=== PATIENT | female | born 1990 | race Caucasian/White ===

== ENCOUNTER 2019-12-08 07:03 | Day surgery (SDC) | payer MEDICAID ==
[~2019-12-08] VITALS: Ht 160 cm; Wt 59.0 kg
--- NOTE | ~2019-12-08 | OP ---
PATIENT NAME: CHER RICH MEDICAL RECORD: [id number] :90 LOCATION:[facility] ADMISSION DATE: SURGEON: MARLENE COCHRAN MD DATE OF OPERATION: 12/08/2019 PREOPERATIVE DIAGNOSES: End-stage renal disease and dependence on hemodialysis, steal syndrome associated with right arm arteriovenous fistula and mechanical complication of vascular dialysis catheter. POSTOPERATIVE DIAGNOSES: End-stage renal disease and dependence on hemodialysis, steal syndrome associated with right arm arteriovenous fistula and mechanical complication of vascular dialysis catheter. OPERATION PERFORMED: Revision of AV fistula, right arm with ligation of venous outflow to the basilic vein and evaluation of Mahurkar tunneled dialysis catheter in the left internal jugular vein with fluoroscopy and contrast injection to verify position. SURGEON: Marlene Cochran MD ANESTHESIA: General per HEAD DOFFER. PREOPERATIVE NOTE: Ms. Rich is a 29-year-old white female patient referred to me by Dr. Schulz. She has end-stage renal disease due to complications of a spina bifida and is presently dialyzing with a catheter. I changed her tunneled dialysis catheter back on 11/27/2019, at [facility] placing a 19-cm Mahurkar non-split tunneled catheter via the left internal jugular vein. I am told that catheter is not functioning well and I have been asked to evaluate it. That same day, I performed an angiogram due to the patient's steal symptoms and demonstrated the patient has a large brachiocephalic AV fistula with a very large runoff to the basilic vein as well. Flow reduction to reduce steal symptoms can be accomplished, we believe with eradication of the venous outflow to the basilic side. Under general anesthesia, the patient was placed in supine position, prepped and draped in sterile manner. A transverse incision was made over the AV fistula anastomosis and the basilic vein outflow tract was dissected from the surrounding tissues and doubly ligated with 0 silk. I demonstrated with Duplex color flow ultrasound persistence of flow and a nicely developing cephalic vein fistula and elimination of the arterial flow in the basilic vein. The wound was closed with running intracuticular 4-0 Stratafix and Dermabond glue. It was dressed with Maxorb Ag, Tegaderm, and Cavilon skin prep. The patient was then reprepped and redraped for what was planned as replacement or exchange of her HemoSplit or tunneled dialysis catheter. I first noted on fluoroscopy that the catheter appeared to be in excellent anatomic position in the mid right atrium. There were no kinks or other apparent complications of the insertion of the catheter from the left side visibly fluoroscopically. I accessed both venous and arterial lumens and aspirated the contents and discarded the initial syringe to eliminate the heparin locking. The ports were then again aspirated and flushed vigorously repeatedly and there was just no problem. I then injected contrast via the venous limb of the catheter and noted a proper filling of the right atrium without any evidence of any obstruction and no evidence of any fibrin sheath. In my opinion, the catheter does not need to OPERATIVE REPORT [id number] CHER RICH be exchanged and that it was simply heparin locked again and clamped and capped and the standard sterile CVL dressing applied. The patient was then awakened and in stable condition taken back to the recovery room. Blood loss during the operation was on the order of 1 cc with the exception of 20 cc that was discarded during the tunneled dialysis catheter evaluation. Sponges, instruments, and needles were accounted for. No drain was used and no surgical specimen submitted for histopathology. PLAN: My plan is to have the patient back to see me in my office in about 2 weeks, probably the dialysis unit should start accessing her right arm fistula soon after that. TRANSINT:[id number] Voice Confirmation ID: [id number] DOCUMENT ID: [id number] cc: MARLENE Woo MD CC: MICHELLE SCHULZ [id number] DICTATION DATE: 12/08/19 1255 DIRECTOR OF RESERVATIONS: 12/08/19 2213 [facility] 12/08/19 [id number] [place] [address]
[2019-12-08 07:27] LABS: BASOPHILS 0.2 % (0-2); EOSINOPHILS 3.1 % (0-7); HEMATOCRIT 39.8 % (36.0-48.0); HEMOGLOBIN 12.7 g/dL (12-16); IMMATURE GRANULOCYTES 0.2 % (0-5); LYMPHOCYTES 12.4 % (15-50); MCH 30.7 pg (26.0-34.0); MCHC 31.9 g/dL (31.0-37.0); MCV 96.1 fL (80.0-100.0); MEAN PLATELET VOLUME 9.5 fL (7.4-10.4); MONOCYTES 9.5 % (2-11); NEUTROPHILS 74.6 % (40-80); PLATELET COUNT 195 10x3/uL (130-400); RBC 4.14 10x6/uL (4.00-5.40); RDW 15.5 % (11.5-14.5); WBC 8.6 10x3/uL (4.8-10.8)
[2019-12-08 07:30] LABS: INR 1.26 (0.85-1.17); PROTIME 15.3 SECONDS (11.6-15.0)
[2019-12-08 07:31] LABS: ANION GAP 13.5 mmol/L (8-16); CARBON DIOXIDE 28.5 mmol/L (21.0-32.0); CREATININE - SERUM 4.2 mg/dL (0.6-1.3)
[2019-12-08] MEDS ORDERED: KEPPRA1000 MG PO (08:03)
[2019-12-08] MEDS ORDERED: LANOXIN125 MCG PO (08:03)
[2019-12-08] MEDS ORDERED: ATIVAN1 MG PO (08:04)
[2019-12-08] MEDS ORDERED: ALBUTEROL SULF8.5 GM INH (08:04)
[2019-12-08] MEDS ORDERED: ZOFRAN4 MG PO (08:04)
[2019-12-08] MEDS ORDERED: PEPCID AC20 MG PO (08:05)
[2019-12-08] MEDS ORDERED: NEURONTIN600 MG PO (08:05)
[2019-12-08 08:06] VITALS: BP 134/79; Ht 160 cm; Wt 59.0 kg
[2019-12-08] MEDS ORDERED: ULTRAM50 MG PO (12:11)
--- NOTE | 2019-12-08 15:15 | NUR ---
1440 PT STATES BECAME NAUSEATED WHEN DRESSING AND REQUESTED SOMETHING FOR THE RIDE BACK HOME. PHENERGAN 12.5MG IM GIVEN FOR NAUSEA 1505 NO EMESIS, STATES NAUSEA IS BETTER. DENIES NAUSEA ANY LONGER. STATES READY FOR RELEASE. DC INSTS REVIEWED. RX GIVEN. RELEASED IN , [facility].
== END 2019-12-08 15:05 | disposition home or self-care (01) ==
LOC: D.OPS 07:03
PROVIDERS: ATTEND Internal Medicine Nephrology
DX: N18.6 End stage renal disease (principal); Z99.2 Dependence on renal dialysis; T82.898A Other specified complication of vascular prosthetic devices, implants and grafts, initial encounter; T82.49XA Other complication of vascular dialysis catheter, initial encounter; Q05.9 Spina bifida, unspecified; I10 Essential (primary) hypertension

== ENCOUNTER → 2020-01-25 10:55 | Outpatient (CLI) | payer MEDICAID ==
[2020-01-05 06:39] VITALS: BMI 23.0
== END | disposition home or self-care (01) ==
LOC: D.LABREF 10:55
PROVIDERS: ATTEND Surgery
DX: Z49.01 Encounter for fitting and adjustment of extracorporeal dialysis catheter (principal); N18.6 End stage renal disease; Z99.2 Dependence on renal dialysis; N31.9 Neuromuscular dysfunction of bladder, unspecified

== ENCOUNTER 2020-01-29 06:05 | Day surgery (SDC) | payer MEDICAID ==
[~2020-01-29] VITALS: Ht 160 cm; Wt 59.1 kg
[~2020-01-29 06:05] MED LIST: ALBUTEROL SULF8.5 GM INH; ATIVAN1 MG PO; DILTIAZEM 24HR240 M4 PO; KEPPRA1000 MG PO; LANOXIN125 MCG PO; NEURONTIN600 MG PO; PEPCID AC20 MG PO; TOPROL XL100 MG PO; ULTRAM50 MG PO; ZOFRAN4 MG PO
[2020-01-29 06:58] LABS: ANION GAP 13.7 mmol/L (8-16); CALCIUM 9.2 mg/dL (8.5-10.1); CARBON DIOXIDE 26.3 mmol/L (21.0-32.0); CREATININE - SERUM 4.4 mg/dL (0.6-1.3)
[2020-01-29 07:01] LABS: INR 1.36 (0.85-1.17); PROTIME 16.7 SECONDS (11.6-15.0)
[2020-01-29 07:02] LABS: BASOPHILS 0.3 % (0-2); EOSINOPHILS 8.7 % (0-7); HEMATOCRIT 31.3 % (36.0-48.0); IMMATURE GRANULOCYTES 0.3 % (0-5); LYMPHOCYTES 26.9 % (15-50); MCH 30.7 pg (26.0-34.0); MCHC 31.9 g/dL (31.0-37.0); MEAN PLATELET VOLUME 10.3 fL (7.4-10.4); MONOCYTES 6.4 % (2-11); NEUTROPHILS 57.4 % (40-80); PLATELET COUNT 249 10x3/uL (130-400); RBC 3.26 10x6/uL (4.00-5.40); RDW 12.4 % (11.5-14.5)
[2020-01-29 08:31] VITALS: BP 139/87; BMI 23.0
[2020-01-29 13:22] LABS: INR 1.75 (0.85-1.17); PROTIME 20.3 SECONDS (11.6-15.0)
[2020-01-29 13:24] LABS: D-DIMER-QUANTITATIVE 1.23 ug/mLFEU (0.20-0.54)
--- NOTE | 2020-01-29 16:20 | NUR ---
PT ARRIVES TO ROOM VIA WHEELCHAIR AAO X 4. HEMESPLIT TO RIGHT CHEST IN PLACE WITH MODERATE AMOUNT OF DRAINAGE NOTED 2X2 GUAZE PLACED. RUE FISTULA PRESENT BRUIT/THRILL PRESENT. BRUISING NOTED TO RUE. DRESSING NOTED TO LEFT CHEST FROM HEMESPLIT THAT WAS REMOVED PER PT. HEMESPLIT NOTED TO LEFT GROIN/THIGH AREA. BRUISING NOTED TO LEFT GROIN. RESPIRATIONS ARE EVEN AND UNLABORED. PT DENIES PRESENCE OF PAIN/N/V AT THIS TIME. PT DENIES PRESENCE OF DIZZINESS/DYSPNEA. FAMILY IS AT BEDSIDE. ASSESS[facility] F[facility] TO ASSUME CARE OF PT. BED IS IN THE LOWEST POSITION. CALL LIGHT AND BEDSIDE TABLE ARE WITHIN REACH. SIDE RAILS X 2.
[2020-01-29 16:25] VITALS: BP 131/94; Ht 160 cm; Wt 59.1 kg
--- NOTE | 2020-01-29 19:55 | NUR ---
PATIENT RETURNED FROM DIALYSIS. DIALYSIS NURSE STATED "THAT PATIENT RIGHT CHEST HEMOSPLIT WAS BLEEDING AT THAT THEY USED A SALINE BAG FOR PRESSURE" NO BLEEDIN AT THIS TIME. PATIENT IS ALERT AND ORIENTED, RESTING IN BED. RESPIRATIONS ARE EVEN AND UNLABORED. NO S/S OF DISTRESS. NO C/O PAIN. CALL LIGHT WITHIN REACH.
[2020-01-29] MEDS ORDERED: ELIQUIS5 MG PO (21:09)
[2020-01-30] VITALS: BP 120/74
[2020-01-30 04:00] VITALS: BP 107/69
[2020-01-30] MEDS ORDERED: ELIQUIS5 MG PO (04:16)
--- NOTE | 2020-01-30 07:26 | NUR ---
PT AWAKE AND ORIENTED, NO BLEEDING AT EITHER HEMASPLIT SITE. ASKING TO GO AHEAD AND GO HOME THIS MORNING, NO D/C ORDER AT THIS WILL CALL. CL IN REACH, SRX,2 AT BEDSIDE.
--- NOTE | 2020-01-30 09:36 | NUR ---
PT ESCORTED OUT VIA WHEELCHIAR TO HUSBANDS POV.
[2020-01-31 12:31] LABS: PROTEIN S - FREE 61 % (57-157); PROTEIN S - FUNCTIONAL 97 % (63-140); PROTEIN S - TOTAL 77 % (60-150)
[2020-01-31 18:30] LABS: MITOCHONDRIAL ANTIBODY <20.0 Units (0.0-20.0)
[2020-02-01 15:10] LABS: ACLA - IGG AB <9 GPL U/mL (0-14); ACLA - IGM AB <9 MPL U/mL (0-12); ANA REFLEX - ANTICHROMATIN ABS 0.6 AI (0.0-0.9); ANA REFLEX - CENTROMERE B ABS <0.2 AI (0.0-0.9); ANA REFLEX - DBL STRANDED DNA 10 IU/mL (0-9); ANA REFLEX - DIRECT Positive (Negative); ANA REFLEX - JO-1 AB <0.2 AI (0.0-0.9); ANA REFLEX - RNP ANTIBODIES 0.2 AI (0.0-0.9); ANA REFLEX - SCL-70 <0.2 AI (0.0-0.9); ANA REFLEX - SJOGRENS AB SSA <0.2 AI (0.0-0.9); ANA REFLEX - SJOGRENS AB SSB <0.2 AI (0.0-0.9); ANA REFLEX - SMITH AB <0.2 AI (0.0-0.9)
--- NOTE | 2020-02-01 16:25 | OP ---
PATIENT NAME: CHER RICH MEDICAL RECORD: [id number] :90 LOCATION:[facility] ADMISSION DATE: SURGEON: MARLENE COCHRAN MD DATE OF OPERATION: 01/29/2020 REFERRED BY: Angel Schulz MD PREOPERATIVE DIAGNOSES: End-stage renal disease and dialysis access catheter thrombosis. ADDITIONAL DIAGNOSES: Acquired thrombophilia, mechanical complication of arteriovenous fistula surgically created, dependence on renal dialysis and end-stage renal disease. OPERATION PERFORMED: Exchange of right internal jugular tunneled dialysis catheters and performance of an inferior vena cavogram. SURGEON: Marlene Cochran MD ANESTHESIA: General with LMA per TRANSFORMATION ARCHITECT. PREOPERATIVE NOTE: Ms. Rich is a 29-year-old white female patient with end-stage renal disease, who has a right brachiocephalic arterial venous fistula, which has been repeatedly infiltrated or extravasated recently and she has had to be dependent on catheter dialysis, but multiple catheters have failed and she seems to be clotting these catheters with having some type of acquired thrombophilia not yet characterized. At any rate, it is becoming quite a difficult and frustrating situation for this young lady. She is brought to the operating room as an outpatient today with plans to remove the right internal jugular catheter over a wire and place a new Merit center flow chronic tunneled dialysis catheter. Hopefully, the different engineering will help prevent approximation to the wall and obstruction of the lumens and also postoperative anticoagulation will help to prevent the catheter from clotting. Under general anesthesia, the patient was prepped and draped in sterile manner. The previous catheter was removed over a guidewire under fluoroscopy. A dilator peel-away sheath was inserted over the wire through the subcutaneous tunnel up to the point at which the wire turned downward in the internal jugular vein. Then, over the wire, I was able to pass the new Merit 23 cm long center flow catheter and the peel-away introducer was removed. The catheter was placed well into the retrohepatic inferior vena cava and contrast injected to perform an inferior vena cavogram. This demonstrated no thrombus and normal anatomy. There was no fibrin sheath or residual of any fibrin sheath apparent. The catheter was then heparin locked with 1000 units per cc heparin solution and the patient was given 5000 units of heparin systemically. The catheter was sutured to the skin near the entry site with 2-0 Prolene and additional sterile dressings applied including a chlorhexidine Biopatch. The patient will need to have dialysis today here in [place]. She will have to be here in the hospital, which will require her being admitted to observation or even inpatient status and hopefully this can be arranged. She [facility]. Dr. Schulz and APs are working on trying to find a way for her to have dialysis here in [place] today. OPERATIVE REPORT [id number] CHER RICH I plan for her to continue Eliquis as her long-term anticoagulant. She started just a couple of days ago on Eliquis 2.5 mg daily. I am going to increase her dose to 5 mg twice a day. I think we should probably wait about 2 weeks and allow her fistula to rest and heal and hopefully mature further and then start trying it again with a single needle. Perhaps the use of a longer needle also would prevent the needles migrating through a back wall of the fistula during the dialysis treatment. Apparently, he has been doing this on the extravasation occurring about midway through her treatments which seems unusual. TRANSINT:[id number] Voice Confirmation ID: [id number] DOCUMENT ID: [id number] cc: MARLENE Woo MD at 1625 CC: ANGEL SCHULZ [id number] DICTATION DATE: 01/29/20 180 DISTRIBUTION CENTER ASSOCIATE: 01/30/20 0104 [facility] 01/30/20 [facility] [address] [place] [address]
[2020-02-02 03:07] LABS: ANTITHROMBIN III ACTIVITY 137 % (75-135); PLASMINOGEN ACTIVITY 91 % (70-150)
[2020-02-02 12:09] LABS: PROTEIN C - ANTIGEN 86 % (60-150); PROTEIN C - FUNCTIONAL 100 % (73-180)
== END 2020-01-30 09:52 | disposition home or self-care (01) ==
LOC: D.OPS 06:05 → D.M2 15:57 → D.OPS 01-30 09:52
PROVIDERS: Surgery; ATTEND Internal Medicine Nephrology
DX: T82.590A Other mechanical complication of surgically created arteriovenous fistula, initial encounter (principal); N18.6 End stage renal disease; D68.59 Other primary thrombophilia; Z99.2 Dependence on renal dialysis; T82.848A Pain due to vascular prosthetic devices, implants and grafts, initial encounter

== ENCOUNTER 2020-02-05 07:41 | Inpatient (IN) | payer MEDICAID ==
[~2020-02-05] VITALS: Ht 160 cm; Wt 60.5 kg
[~2020-02-05 07:41] MED LIST changes: +ELIQUIS5 MG PO
[2020-02-05 08:11] LABS: BASOPHILS 0.5 % (0-2); HEMATOCRIT 30.6 % (36.0-48.0); HEMOGLOBIN 9.5 g/dL (12-16); IMMATURE GRANULOCYTES 0.1 % (0-5); LYMPHOCYTES 11.3 % (15-50); MEAN PLATELET VOLUME 9.7 fL (7.4-10.4); MONOCYTES 4.6 % (2-11); NEUTROPHILS 77.5 % (40-80); PLATELET COUNT 253 10x3/uL (130-400); RBC 3.06 10x6/uL (4.00-5.40); RDW 13.7 % (11.5-14.5)
[2020-02-05 08:26] LABS: INR 1.21 (0.85-1.17); PROTIME 15.3 SECONDS (11.6-15.0)
[2020-02-05 08:27] LABS: ANION GAP 12.6 mmol/L (8-16); CARBON DIOXIDE 24.5 mmol/L (21.0-32.0)
[2020-02-05 08:38] LABS: POTASSIUM - SERUM 6.1 mmol/L (3.5-5.1)
[2020-02-05 09:58] VITALS: BP 121/88; BMI 22.1
[2020-02-05 14:56] LABS: COMPLEMENT C4 19.4 mg/dL (17.4-52.2)
--- NOTE | 2020-02-05 18:58 | NUR ---
184 RECEIVED REPORT FROM Jesus Manuel TEJADA OVER PATIENT CARE
--- NOTE | 2020-02-05 19:45 | NUR ---
PT TO ROOM 2101 VIA STRETCHER ACCOMPANIED BY AND HOSPITAL STAFF. BEDSIDE REPORT RECEIVED, PT CARE ASSUMED. INTRODUCED SELF AND WROTE NAME ON BOARD. AFVSS, C/O RUE PAIN OF 5, ON A SCALE OF 0-10, R/T PROCEDURE. DENIES N&V AT THIS TIME. AT BEDSIDE. BED IN LOWEST POSITION, SR X1, CALL LIGHT WITHIN REACH. WILL CONTINUE TO MONITOR.
[2020-02-05 20:06] LABS: HEMATOCRIT 32.3 % (36.0-48.0); HEMOGLOBIN 9.9 g/dL (12-16); MCHC 30.7 g/dL (31.0-37.0); MCV 101.3 fL (80.0-100.0); MEAN PLATELET VOLUME 9.7 fL (7.4-10.4); RBC 3.19 10x6/uL (4.00-5.40); RDW 13.5 % (11.5-14.5); WBC 9.2 10x3/uL (4.8-10.8)
[2020-02-06] VITALS: BP 130/84
--- NOTE | 2020-02-06 01:30 | NUR ---
RECEIVED TELEPHONE ORDER FROM FELICITA LLANOS APN, FOR RIGHT CHEST HEMOSPLIT ACCESS FOR CONTINUOUS IV HEPARIN DRIP. ALSO, RECEIVED ORDER FOR NORCO 7.5 MG PO Q4 HOURS, PRN DISCOMFORT.
[2020-02-06 04:00] VITALS: BP 134/85
[2020-02-06 04:48] VITALS: BP 139/98; BMI 22.1
[2020-02-06 05:13] LABS: BASOPHILS 0.2 % (0-2); EOSINOPHILS 0 % (0-7); HEMATOCRIT 27.4 % (36.0-48.0); HEMOGLOBIN 8.4 g/dL (12-16); IMMATURE GRANULOCYTES 0.3 % (0-5); LYMPHOCYTES 6.9 % (15-50); MCH 30.8 pg (26.0-34.0); MCHC 30.7 g/dL (31.0-37.0); MCV 100.4 fL (80.0-100.0); MEAN PLATELET VOLUME 10.5 fL (7.4-10.4); MONOCYTES 6.4 % (2-11); NEUTROPHILS 86.2 % (40-80); PLATELET COUNT 227 10x3/uL (130-400); RBC 2.73 10x6/uL (4.00-5.40); RDW 13.5 % (11.5-14.5); WBC 10.3 10x3/uL (4.8-10.8)
[2020-02-06 05:43] LABS: ANION GAP 15.6 mmol/L (8-16); BILIRUBIN - TOTAL 0.16 mg/dL (0.2-1.3); CALCIUM 8.5 mg/dL (8.5-10.1); CARBON DIOXIDE 21.1 mmol/L (21.0-32.0); CREATININE - SERUM 4.3 mg/dL (0.6-1.3); PHOSPHOROUS 3.2 mg/dL (2.5-4.9); POTASSIUM - SERUM 5.7 mmol/L (3.5-5.1); PROTEIN - SERUM 6.4 g/dL (6.4-8.2)
--- NOTE | 2020-02-06 08:23 | NUR ---
PT RESTING, RR EVEN AND UNLABORED. DENIES NEEDS OR PAIN AT THIS TIME. BED IN LOWEST POSITION. HEPARIN INFUSING TO BLUE PORT ON HEMOSPLIT @ 8MLS/HR. CALL LIGHT WITHIN REACH. WILL CONTINUE TO MONITOR.
[2020-02-06 09:10] VITALS: BP 143/50
--- NOTE | 2020-02-06 14:45 | NUR ---
RECIEVED PT FROM DIALYSIS. STATES PAIN IN ARM 05/11. PAIN MEDICATION RECIEVED PER ORDER. SPOUSE AT BEDSIDE. CALL LIGHT WITHIN REACH. WILL CONTINUE TO MONITOR.
[2020-02-06 14:57] VITALS: Ht 160 cm; Wt 60.5 kg
--- NOTE | 2020-02-06 15:16 | NUR ---
I have reviewed this patient and I concur with the Shift Assessment completed by the Licensed Practical Nurse today this shift.
[2020-02-06 16:00] VITALS: BP 113/70
--- NOTE | 2020-02-06 19:10 | NUR ---
BEDSIDE REPORT RECEIVED FROM DAY SHIFT, PT CARE ASSUMED. WROTE NAME ON BOARD. PT SITTING UP IN BED, AAOX4, VISITING WITH AT BEDSIDE. DENIES ANY NEEDS AT THIS TIME. BED IN LOWEST POSITION, SR X2, CALL LIGHT WITHIN REACH. WILL CONTINUE TO MONITOR.
[2020-02-06 20:00] VITALS: BP 110/63
[2020-02-07 01:35] VITALS: BP 102/62
[2020-02-07 03:05] LABS: BASOPHILS 0.5 % (0-2); EOSINOPHILS 5.4 % (0-7); HEMOGLOBIN 8.1 g/dL (12-16); IMMATURE GRANULOCYTES 0.2 % (0-5); LYMPHOCYTES 31.2 % (15-50); MCH 30.9 pg (26.0-34.0); MCHC 31.2 g/dL (31.0-37.0); MCV 99.2 fL (80.0-100.0); MEAN PLATELET VOLUME 10.2 fL (7.4-10.4); MONOCYTES 6.2 % (2-11); NEUTROPHILS 56.5 % (40-80); RBC 2.62 10x6/uL (4.00-5.40); RDW 13.7 % (11.5-14.5); WBC 8.6 10x3/uL (4.8-10.8)
[2020-02-07 03:08] LABS: PLATELET COUNT 172 10x3/uL (130-400)
[2020-02-07 03:18] LABS: ALBUMIN 2.8 g/dL (3.4-5.0); ANION GAP 9.8 mmol/L (8-16); BILIRUBIN - TOTAL 0.13 mg/dL (0.2-1.3); CARBON DIOXIDE 29.8 mmol/L (21.0-32.0); CREATININE - SERUM 3.3 mg/dL (0.6-1.3); POTASSIUM - SERUM 5.6 mmol/L (3.5-5.1); PROTEIN - SERUM 5.9 g/dL (6.4-8.2)
[2020-02-07 05:11] VITALS: BP 102/68
--- NOTE | 2020-02-07 07:32 | NUR ---
PT LAYING SUPINE, RR EVEN AND UNLABORED. DENIES NEEDS OR PAIN AT THIS TIME. CALL LIGHT WITHIN REACH. BED IN LOWEST POSITION. WILLL CONTINUE TO MONITOR.
[2020-02-07 09:14] VITALS: BP 105/55
[2020-02-07 09:26] LABS: INR 2.04 (0.85-1.17); PROTIME 22.8 SECONDS (11.6-15.0)
[2020-02-07] MEDS ORDERED: COUMADIN7.5 MG PO (10:22)
--- NOTE | 2020-02-07 10:55 | MORECARE ---
CASE MANAGEMENT DISCHARGE SUMMARY PATIENT: CHER RICH UNIT: [id number] ADM DATE: 02/05/20 AGE: 29 : 90 SEX: F ROOM/BED: D.2102 AUTHOR: ALMA DELIA LEIGH PHYSICIAN: REFERRING PHYSICIAN: ANA MARIA RUIZ MD DATE OF SERVICE: 02/07/20 Discharge Plan Patient Name: CHER RICH [facility] [facility] 1990 Planned Disposition: Home Anticipated Discharge Date: Discharge Date: Expected LOS: Initial Reviewer: [email or web address] Initial Review Date: 02/05/2020 Generated: 02/07/20 11:55 am Patient Name: CHER RICH Page [id number] at 1055 All edits/amendments must be made on the electronic document DICTATION DATE: 02/07/20 1055 LACROSSE PLAYER: IGNACIO 02/07/20 1055 RPT#: [id number] DC DATE: STATUS: ADM IN [facility] [address] [place] [address] END OF REPORT
--- NOTE | 2020-02-07 11:02 | MORECARE ---
CASE MANAGEMENT DISCHARGE SUMMARY PATIENT: CHER RICH UNIT: [id number] ADM DATE: 02/05/20 AGE: 29 : 90 SEX: F ROOM/BED: D.2102 AUTHOR: LU,DOC PHYSICIAN: REFERRING PHYSICIAN: ANA MARIA RUIZ MD DATE OF SERVICE: 02/07/20 Discharge Plan Patient Name: CHER RICH Facility: [facility]:[place] : 1990 Planned Disposition: Home Anticipated Discharge Date: Discharge Date: Expected LOS: Initial Reviewer: [email or web address] Initial Review Date: 02/05/2020 Generated: 02/07/20 12:01 pm Comments DCP- Discharge Planning Updated by [email or web address]: Eryn Lerma on 02/07/20 9:[address] Patient Name: CHER RICH Admission Status: Elective Accout number: [id number] Admission Date: 02-05-2020 : 1990 Admission Diagnosis: Attending: ANA MARIA RUIZ Current LOS: 2 Anticipated DC Date: Planned Disposition: Home Primary Insurance: MEDICAID [place] Discharge Planning Comments: CM met with patient to complete initial dc planning assessment. CM educated patient on the CM role and verbal consent given by patient to complete assessment. CM verified patient's address, phone number, and emergency contact phone numbers. Patient lives at home with her spouse. At discharge patient plans to return home and feels that is a safe discharge. CM discussed availability of home health, rehab services, and medical equipment. Patient has dialysis in [place] MWF @ 0730. Patient denies any discharge needs at this time. CM will continue to follow and will assist as needed with dc plans/needs. Home Inspector: Eryn Lerma DCPIA - Discharge Planning Initial Assessment Updated by [email or web address]: Eryn Lerma on 02/07/20 10:56 am * Is the patient Alert and Oriented? Yes * How many steps to enter\exit or inside your home? * PCP [facility] - [place] * Pharmacy [facility] [place] * Preadmission Environment Home with Family * ADLs Independent * Equipment None * List name and contact numbers for known caregivers / representatives who currently or will assist patient after discharge: Jeffrey Rich - spouse - [phone] * Verbal permission to speak to the caregivers and representatives has been obtained from the patient. N/A * Community resources currently utilized None * Please name any agencies selected above. [facility] in [place] @ [phone] * Additional services required to return to the preadmission environment? No * Can the patient safely return to the preadmission environment? Yes * Has this patient been hospitalized within the prior 30 days at any hospital? No Last DP export: 02/07/20 9:55 am Patient Name: CHER RICH Page [phone] at 1102 All edits/amendments must be made on the electronic document DICTATION DATE: 02/07/201100 DESKTOP SPECIALIST: IGNACIO 02/07/201100 RPT#: [id number] DC DATE: STATUS: ADM IN [facility] [address] [place] [address] END OF REPORT
--- NOTE | 2020-02-07 12:03 | NUR ---
D/C INSTRUCTIONS REVIEWED WITH PT AND SPOUCE. BOTH VERBALZIED AGREEMENT AND NO FURTHER QUESTIONS AT THIS TIME. MONITOR REMOVED AND RETURNED TO FILM AND VIDEO EDITOR. PT LEFT VIA WHEELCHAIR WITH ALL BELONGINGS. SPOUSE TO DRIVE PT HOME.
--- NOTE | 2020-02-08 08:43 | MORECARE ---
CASE MANAGEMENT DISCHARGE SUMMARY PATIENT: CHER RICH UNIT: [id number] ADM DATE: 02/05/20 AGE: 29 : 90 SEX: F ROOM/BED: D.2102 AUTHOR: LU,DOC PHYSICIAN: REFERRING PHYSICIAN: ANA MARIA RUIZ MD DATE OF SERVICE: 02/08/20 Discharge Plan Patient Name: CHER RICH Facility[facility]:[place] : 1990 Planned Disposition: Home Anticipated Discharge Date: 02/07/20 Discharge Date: 02/07/2020 Expected LOS: 2 Initial Reviewer: [email or web address] Initial Review Date: 02/05/2020 Generated: 02/08/20 9:42 am Comments DCP- Discharge Planning Updated by [email or web address]: Eryn Lerma on 02/07/20 9:[address] Patient Name: CHER RICH Admission Status: Elective Accout number: [id number] Admission Date: 02-05-2020 : 1990 Admission Diagnosis: Attending: ANA MARIA RUIZ Current LOS: 2 Anticipated DC Date: Planned Disposition: Home Primary Insurance: MEDICAID [place] Discharge Planning Comments: CM met with patient to complete initial dc planning assessment. CM educated patient on the CM role and verbal consent given by patient to complete assessment. CM verified patient's address, phone number, and emergency contact phone numbers. Patient lives at home with her spouse. At discharge patient plans to return home and feels that is a safe discharge. CM discussed availability of home health, rehab services, and medical equipment. Patient has dialysis in [place] MWF @ 0730. Patient denies any discharge needs at this time. CM will continue to follow and will assist as needed with dc plans/needs. Calender Operator: Eryn Lerma DCPIA - Discharge Planning Initial Assessment Updated by [email or web address]: Eryn Lerma on 02/07/20 10:56 am * Is the patient Alert and Oriented? Yes * How many steps to enter\exit or inside your home? * PCP [facility] [place] * Pharmacy [facility] [place] * Preadmission Environment Home with Family * ADLs Independent * Equipment None * List name and contact numbers for known caregivers / representatives who currently or will assist patient after discharge: Jeffrey Rich - spouse - [phone] * Verbal permission to speak to the caregivers and representatives has been obtained from the patient. N/A * Community resources currently utilized None * Please name any agencies selected above. HD MWF in [place] @ [phone] * Additional services required to return to the preadmission environment? No * Can the patient safely return to the preadmission environment? Yes * Has this patient been hospitalized within the prior 30 days at any hospital? No Last DP export: 02/07/20 10:02 am Patient Name: CHER RICH Page [phone] at 0843 All edits/amendments must be made on the electronic document DICTATION DATE: 02/08/20841 WELLNESS AMBASSADOR: IGNACIO 02/08/20841 RPT#: [id number] DC DATE:02/07/20 STATUS: DIS IN [facility] [address] [place] [address] END OF REPORT
[2020-02-08 14:09] LABS: ANA REFLEX - DIRECT Negative (Negative)
== END 2020-02-07 12:40 | disposition home or self-care (01) | DRG 252 ==
LOC: D.OPS 07:41 → D.M2 19:41 → D.OPS 19:42 → D.M2 19:42
PROVIDERS: Internal Medicine Nephrology; ADMIT Surgery; ATTEND Internal Medicine Nephrology
PROC: 057F3DZ Dilation of Left Cephalic Vein with Intraluminal Device, Percutaneous Approach (ICD-10-PCS; 2020-02-05)
PROC: 06PY3YZ Removal of Other Device from Lower Vein, Percutaneous Approach (ICD-10-PCS; 2020-02-05)
PROC: 05LF0ZZ Occlusion of Left Cephalic Vein, Open Approach (ICD-10-PCS; principal; 2020-02-05 13:00)
PROC: 5A1D70Z Performance of Urinary Filtration, Intermittent, Less than 6 Hours Per Day (ICD-10-PCS; 2020-02-06)
DX: T82.590A Other mechanical complication of surgically created arteriovenous fistula, initial encounter (principal); N18.6 End stage renal disease; I12.0 Hypertensive chronic kidney disease with stage 5 chronic kidney disease or end stage renal disease; D68.59 Other primary thrombophilia; Y84.9 Medical procedure, unspecified as the cause of abnormal reaction of the patient, or of later complication, without mention of misadventure at the time of the procedure; K21.9 Gastro-esophageal reflux disease without esophagitis; Q05.9 Spina bifida, unspecified; D63.1 Anemia in chronic kidney disease; E87.5 Hyperkalemia

== ENCOUNTER → 2020-03-17 08:42 | Outpatient (CLI) | payer MEDICARE ==
[2020-02-06 14:57] VITALS: BMI 22.1
[~2020-03-17 08:42] MED LIST changes: +COUMADIN7.5 MG PO
[2020-03-17 09:23] LABS: INR 1.23 (0.85-1.17); PROTIME 15.4 SECONDS (11.6-15.0)
== END | disposition home or self-care (01) ==
LOC: D.LAB 08:42 → D.CT 09:30
PROVIDERS: ATTEND Internal Medicine Nephrology
DX: R06.02 Shortness of breath (principal)

== ENCOUNTER → 2020-03-24 09:01 | Outpatient (CLI) | payer MEDICARE ==
[2020-02-06 14:57] VITALS: BMI 22.1
== END | disposition home or self-care (01) ==
LOC: D.HCCECHO 09:01
PROVIDERS: ATTEND Internal Medicine Cardiovascular Disease
DX: R00.2 Palpitations (principal); R07.9 Chest pain, unspecified

== ENCOUNTER 2020-05-27 15:46 | Inpatient (IN) | payer MEDICARE ==
[~2020-05-27] VITALS: Ht 160 cm; Wt 60.0 kg
[2020-05-27 16:52] LABS: BASOPHILS 0.2 % (0-2); EOSINOPHILS 2.1 % (0-7); HEMATOCRIT 38.9 % (36.0-48.0); HEMOGLOBIN 12.9 g/dL (12-16); IMMATURE GRANULOCYTES 0.3 % (0-5); LYMPHOCYTES 10.1 % (15-50); MCH 30.1 pg (26.0-34.0); MCHC 33.2 g/dL (31.0-37.0); MCV 90.9 fL (80.0-100.0); MEAN PLATELET VOLUME 10.2 fL (7.4-10.4); NEUTROPHILS 81.3 % (40-80); RBC 4.28 10x6/uL (4.00-5.40); RDW 13.3 % (11.5-14.5); WBC 12.7 10x3/uL (4.8-10.8)
[2020-05-27 16:54] LABS: PLATELET COUNT 217 10x3/uL (130-400)
[2020-05-27 17:03] LABS: CALCIUM 9.5 mg/dL (8.5-10.1); CARBON DIOXIDE 23.7 mmol/L (21.0-32.0); CREATININE - SERUM 4.4 mg/dL (0.6-1.3); POTASSIUM - SERUM 4.7 mmol/L (3.5-5.1)
[2020-05-27 17:06] LABS: ALBUMIN 4.1 g/dL (3.4-5.0); BILIRUBIN - TOTAL 0.42 mg/dL (0.2-1.3); PROTEIN - SERUM 7.8 g/dL (6.4-8.2)
[2020-05-27 17:40] LABS: APTT 58.8 SECONDS (22.8-39.4)
[2020-05-27 17:41] LABS: D-DIMER-QUANTITATIVE 0.3 ug/mLFEU (0.20-0.54)
[2020-05-27 18:11] LABS: INR 5.79 (0.85-1.17); PROTIME 50.8 SECONDS (11.6-15.0)
--- NOTE | 2020-05-27 19:26 | NUR ---
RECEIVED REPORT, PT CARE ASSUMED. AWAITING PT'S ARRIVAL TO ROOM 2109.
--- NOTE | 2020-05-27 19:45 | NUR ---
PT TO ROOM 2110 VIA WHEELCHAIR ACCOMPANIED BY AND HOSPITAL STAFF.
--- NOTE | 2020-05-27 19:55 | NUR ---
ZOSYN STOPPED AT 1923. VANCOMYCIN HUNG AND INFUSING ON TRANSFER
[2020-05-28 00:26] VITALS: BP 136/95
[2020-05-28 01:41] VITALS: BP 116/81; BMI 23.4
[2020-05-28 04:30] VITALS: BP 105/71
[2020-05-28 05:35] LABS: BASOPHILS 0.2 % (0-2); EOSINOPHILS 3.9 % (0-7); IMMATURE GRANULOCYTES 0.2 % (0-5); LYMPHOCYTES 17.5 % (15-50); MCH 29.1 pg (26.0-34.0); MCHC 31.4 g/dL (31.0-37.0); MCV 92.6 fL (80.0-100.0); MEAN PLATELET VOLUME 10.5 fL (7.4-10.4); MONOCYTES 7.7 % (2-11); NEUTROPHILS 70.5 % (40-80); PLATELET COUNT 187 10x3/uL (130-400); RBC 3.78 10x6/uL (4.00-5.40); RDW 13.6 % (11.5-14.5)
[2020-05-28 05:42] LABS: WBC 8.2 10x3/uL (4.8-10.8)
[2020-05-28 06:01] LABS: ALBUMIN 3.1 g/dL (3.4-5.0); ANION GAP 13.7 mmol/L (8-16); BILIRUBIN - TOTAL 0.35 mg/dL (0.2-1.3); CARBON DIOXIDE 22.4 mmol/L (21.0-32.0); CREATININE - SERUM 4.5 mg/dL (0.6-1.3); POTASSIUM - SERUM 5.1 mmol/L (3.5-5.1); PROTEIN - SERUM 6.4 g/dL (6.4-8.2); VANCOMYCIN - RANDOM 25.3 ug/mL (10.0-20.0)
[2020-05-28 10:06] VITALS: BP 125/87
[2020-05-28 11:49] LABS: INR 5.68 (0.85-1.17)
[2020-05-28 12:43] VITALS: Ht 160 cm; Wt 60.0 kg
[2020-05-28 13:12] VITALS: BP 117/81
[2020-05-28 16:32] LABS: BILIRUBIN NEGATIVE (NEGATIVE); GLUCOSE 100 mg/dL (NEGATIVE); KETONE NEGATIVE (NEGATIVE); NITRITE NEGATIVE (NEGATIVE); SPECIFIC GRAVITY 1.005 (1.005-1.020); UROBILINOGEN NORMAL (NORMAL)
[2020-05-28 16:33] LABS: BACTERIA FEW /hpf (NEGATIVE); EPITHELIAL CELLS 0-5 /hpf (0-5); RED CELLS - URINE >50 /hpf (0-5); WHITE CELLS - URINE 0-5 /hpf (NEGATIVE)
--- NOTE | 2020-05-28 20:00 | NUR ---
PATIENT RESTING IN BED WITH NO S/S OF DISTRESS. S/L PATIENT'S IV TO LEFT AC PER HER REQUEST. PATIENT DENIES OTHER NEEDS AT THIS TIME. BED IN LOWEST POSITION AND CALL LIGHT WITHIN REACH. ENCOURAGED THE PATIENT TO CALL IF SHE HAS NEEDS. WILL CONTINUE TO MONITOR.
[2020-05-28 20:30] VITALS: BP 114/74
[2020-05-29 04:30] VITALS: BP 104/70
[2020-05-29 06:27] LABS: BASOPHILS 0.1 % (0-2); EOSINOPHILS 4.6 % (0-7); HEMATOCRIT 31.1 % (36.0-48.0); HEMOGLOBIN 9.8 g/dL (12-16); IMMATURE GRANULOCYTES 0.3 % (0-5); LYMPHOCYTES 21.1 % (15-50); MCHC 31.5 g/dL (31.0-37.0); MEAN PLATELET VOLUME 10.6 fL (7.4-10.4); MONOCYTES 8.9 % (2-11); PLATELET COUNT 179 10x3/uL (130-400); RBC 3.38 10x6/uL (4.00-5.40); RDW 13.5 % (11.5-14.5); WBC 7.1 10x3/uL (4.8-10.8)
[2020-05-29 06:32] LABS: ANION GAP 14.3 mmol/L (8-16); CARBON DIOXIDE 20.2 mmol/L (21.0-32.0); CREATININE - SERUM 4.4 mg/dL (0.6-1.3); POTASSIUM - SERUM 4.5 mmol/L (3.5-5.1)
[2020-05-29 06:55] LABS: INR 2.48 (0.85-1.17); PROTIME 26.5 SECONDS (11.6-15.0)
[2020-05-29 14:10] VITALS: BP 106/73
[2020-05-29 18:22] VITALS: BP 107/74
[2020-05-29 20:30] VITALS: BP 110/72
--- NOTE | 2020-05-29 20:35 | NUR ---
SPOKE WITH DR. COCHRAN RE APTT LAB VALUES, RECEIVED NEW ORDERS TO ADJUST HEPARIN DRIP TO 800 UNITS/HR. RATE ADJUSTED, WILL CTM.
[2020-05-30 00:17] VITALS: BP 112/74
[2020-05-30 03:01] LABS: BASOPHILS 0.4 % (0-2); EOSINOPHILS 5.7 % (0-7); HEMATOCRIT 32.1 % (36.0-48.0); HEMOGLOBIN 10.6 g/dL (12-16); IMMATURE GRANULOCYTES 0.1 % (0-5); LYMPHOCYTES 18.1 % (15-50); MCV 90.9 fL (80.0-100.0); MEAN PLATELET VOLUME 9.8 fL (7.4-10.4); MONOCYTES 8.8 % (2-11); NEUTROPHILS 66.9 % (40-80); PLATELET COUNT 198 10x3/uL (130-400); RBC 3.53 10x6/uL (4.00-5.40); RDW 13.2 % (11.5-14.5); WBC 6.7 10x3/uL (4.8-10.8)
[2020-05-30 03:41] LABS: PROTIME 18.8 SECONDS (11.6-15.0)
[2020-05-30 03:42] LABS: APTT > 200.0 SECONDS (22.8-39.4)
[2020-05-30 04:30] VITALS: BP 105/67
[2020-05-30 09:00] VITALS: BP 111/72
--- NOTE | 2020-05-30 10:24 | NUR ---
ALERT AND ORIENTED X4. SITTING UP IN BED. NOTIFY OF PTT 200.0. DECREASE HEPARIN DRIP TO 500UNITS/HR PER VIA TELEPHONE. PROCEDURE CONFIRM FOR AFTERNOON. NOTIFY ADIA WITH DIALYSIS TREATMENT NEEDS TO BE COMPLETE BEFORE SURGERY.
--- NOTE | 2020-05-30 10:48 | NUR ---
CALLED DR. SCHULZ TO SEE WHETHER PATIENT NEEDED ANOTHER DIALYSIS TREATMENT BEFORE HER SURGERY WITH DR. COCHRAN THIS AFTERNOON. DR. SCHULZ SAYS NO NEED FOR ANOTHER DIALYSIS TREATMENT. PATIENT HAD A TREATMENT LASTNIGHT.
[2020-05-30 11:00] VITALS: BP 123/71
[2020-05-30 15:00] VITALS: BP 115/70
--- NOTE | 2020-05-30 19:30 | NUR ---
PATIENT TO THE FLOOR FROM SURGERY, PATIENT HAS A LEFT AC PIV WITH FLUIDS RUNNING, PATIENT HAS A RIGHT GROIN TRIALYSIS, REPORT NEEDS DRESSING CHANGE. UPON INSPECTION OF TRIALYSIS I NOTED SLIGHT BLEED UNDER TEGADERM, AFTER DICUSSION IT WITH MY CHARGE NURSE MICHAEL BENJAMIN WE DECIDED TO RE-ENFORCE DRESSING AND MONITOR SITE. PATIENT COMPLAINED OF NAUSEA SO TREATED PER JAN. DR. COCHRAN REQUESTED THAT DIALYSIS BE DONE TOMORROW THROUGH TRIALYSIS, WILL PASS ON TO MORNING NURSE. PATIENT SHOWS NO S/SX OF DISTRESS AT THIS TIME. SPOUSE AT BEDSIDE, NO OTHER NEEDS OR COMPLAINTS AT THIS TIME. CALL LIGHT TITO REACH AND BD IN LOWEST LOCKED POSITION.
[2020-05-30 21:21] VITALS: BP 145/95
[2020-05-31 01:04] VITALS: BP 148/68
[2020-05-31 04:27] LABS: BASOPHILS 0.2 % (0-2); EOSINOPHILS 4.3 % (0-7); HEMATOCRIT 30.4 % (36.0-48.0); HEMOGLOBIN 9.8 g/dL (12-16); LYMPHOCYTES 12.8 % (15-50); MCH 29.3 pg (26.0-34.0); MCHC 32.2 g/dL (31.0-37.0); MCV 90.7 fL (80.0-100.0); MONOCYTES 8.5 % (2-11); NEUTROPHILS 74.2 % (40-80); PLATELET COUNT 171 10x3/uL (130-400); RBC 3.35 10x6/uL (4.00-5.40); WBC 5.6 10x3/uL (4.8-10.8)
[2020-05-31 04:41] LABS: INR 1.3 (0.85-1.17); PROTIME 16.1 SECONDS (11.6-15.0)
[2020-05-31 04:43] LABS: APTT 37.5 SECONDS (22.8-39.4)
[2020-05-31 04:53] LABS: ANION GAP 13.4 mmol/L (8-16); CALCIUM 8.2 mg/dL (8.5-10.1); CARBON DIOXIDE 23.9 mmol/L (21.0-32.0); CREATININE - SERUM 4.5 mg/dL (0.6-1.3); POTASSIUM - SERUM 4.3 mmol/L (3.5-5.1); VANCOMYCIN - RANDOM 27.9 ug/mL (10.0-20.0)
--- NOTE | 2020-05-31 05:09 | NUR ---
CHECKED RIGHT GROIN TRIALYSIS, NOT NEW BLEEDING NOTED. CALL LIGHT WITHIN REACH SPOUSE AT BEDSIDE.
[2020-05-31 08:06] VITALS: BP 111/68
--- NOTE | 2020-05-31 12:57 | NUR ---
Nutrition Follow-up: S/p thrombectomy yesterday. Pt reports that she has been eating well overall but did not eat this AM because she was not hungry. Noted plans to d/c tomorrow. Diet: Renal Wt: 132.2# (05/28) Last BM: 05/30 Labs noted: K+ 4.3, Ca 8.2 Meds noted: Pepcid -Encourage PO intake and honor food preferences within diet restrictions. -Offer Nepro with meals. -Monitor wt. -RD following.
--- NOTE | 2020-05-31 16:13 | OP ---
PATIENT NAME: CHER RICH MEDICAL RECORD: [id number] :89 LOCATION:D.M2 D.2109 ADMISSION DATE:05/27/20 SURGEON: MARLENE COCHRAN MD DATE OF OPERATION: 05/29/2020 REFERRED BY: Angel Schulz MD PREOPERATIVE DIAGNOSES: End-stage renal disease and dependence on hemodialysis and thrombosed right arm arteriovenous graft and also severe thrombophilia. POSTOPERATIVE DIAGNOSES: End-stage renal disease and dependence on hemodialysis and thrombosed right arm arteriovenous graft and also severe thrombophilia. OPERATION PERFORMED: Ultrasound-guided cannulation of the right common femoral vein with performance of an inferior vena cavogram followed by percutaneous insertion of a 24 cm long Trialysis percutaneous acute dialysis catheter. SURGEON: Marlene Cochran MD ANESTHESIA: Local 1% lidocaine plus MAC per DOUGH SHEETER. PREOPERATIVE NOTE: Ms. Rich is a 30-year-old white female patient with end-stage renal disease and severe thrombophilia. She had been dialyzing for the last 4 months with a right brachiocephalic AV Acuseal graft, which now though has acutely thrombosed. She needs dialysis access. When she presented through the Emergency Room on Saturday, her prothrombin INR was very extended or elevated out of range from her usual dose of Coumadin, that has been held. She was given vitamin K and today her INR is approximately 3 at least in a therapeutic range. She needs to have her AV graft patency restored and probably maintained on heparin until long-term anticoagulation is either resumed with Coumadin or she is changed to Eliquis or Xarelto. At any rate, I had her scheduled for surgery for today with the operating room, had worked late last night and the OR techs had requested that if possible, we simply place a catheter today and plan to bring her back tomorrow for more definitive procedure. I have agreed to that after discussion with the rothman director, Ms. Chiang and I have explained to them the patient's history of thrombophilia and the significant possibility that though we place a catheter today and may thrombosed and she may not be able to dialyze with it by the time they get around to it today. If indeed that occur, she will have to be returned to the operating room for more definitive operation as well as another catheter probably. At any rate, she is brought to the operating room at this time with plans to place a percutaneous catheter. DESCRIPTION OF PROCEDURE: Under IV sedation and monitored per DOUGH SHEETER, she was placed in supine position and prepped and draped in sterile manner. I examined the femoral areas with a duplex ultrasound and confirmed patency of the right common femoral vein. Under local anesthesia, I made a small stab incision and then using continuous real-time ultrasound guidance with image documentation and hard paper copies placed in the patient's record, I accessed the common femoral vein with micropuncture needle and image guidance. A guidewire was inserted and then a small catheter inserted over the wire. Contrast injections were then performed with digital subtraction technique and C-arm fluoroscopy to complete a venogram from the common femoral vein to the right atrium. No obstructions of the iliac veins or vena cava was seen. I then performed a wire exchange and then over that inserted a 24 cm long Trialysis catheter. Its tip reached up OPERATIVE REPORT [id number] LAYLACHER into the mid to distal IVC. All 3 lumens were then accessed and aspirated, free return of blood confirmed. They were then flushed with heparinized saline and then heparin locked with heparin 1000 units per cc heparin. The catheter was sutured to the skin near the entry site with 2-0 Prolene and a chlorhexidine Biopatch and sterile CVL dressing applied. The patient was then awakened and returned to her room. She will be given 5000 units of heparin as a bolus as soon as possible and then continued on unfractionated heparin 1000 units per hour via the central lumen of her Trialysis catheter. We will ask for dialysis to come in today on Saturday and do her dialysis as soon as possible as I really am fearful that the catheter may clot off or fail despite our aggressive measures to keep it open. I will keep her n.p.o. today until after the functional status of the dialysis catheter was shown. Hopefully, then she can resume a diet and then again be n.p.o. after midnight tonight before returning to the operating room tomorrow afternoon. There was no blood loss during the procedure. Sponges, instruments, and needles were accounted for. No drain was used and no surgical specimen submitted for histopathology. TRANSINT:[id number] Voice Confirmation ID: [id number] DOCUMENT ID: [id number] cc: MARLENE Woo MD at [id number] CC: ANGEL SCHULZ [id number] DICTATION DATE: 05/29/20 1145 LONG LINES OPERATOR: 05/29/20 1328 ADM IN [facility] [address] [id number]
[2020-05-31 20:00] VITALS: BP 115/66
--- NOTE | 2020-05-31 21:52 | NUR ---
D/C'D PT'S HEPARIN DRIP PER DR. COCHRAN NOTES. WILL CONTINUE TO MONITOR.
[2020-06-01] VITALS: BP 102/74
[2020-06-01 04:00] VITALS: BP 104/62
--- NOTE | 2020-06-01 07:30 | NUR ---
REPORT RECIEVED. PT SITTING SEMI FOWLERS. RR EVEN AND UNLABORED ON RA. SHE HAS A R AV FISTULA, THRILL AND BRUIT PRESENT. SHE ALSO HAS A RIGHT GROIN TRIALYSIS. BED LOCKED AND IN LOWEST POSITION, CALL LIGHT WITHIN REACH. WILL CTM
[2020-06-01] MEDS ORDERED: PLAVIX75 MG PO (09:31)
[2020-06-01] MEDS ORDERED: ELIQUIS2.5 MG PO (09:31)
--- NOTE | 2020-06-01 09:45 | NUR ---
TRIALYSIS DC BY HARSH BENJAMIN. WILL CTM
--- NOTE | 2020-06-01 10:44 | NUR ---
TRIALYSIS CATH REMOVED FOR RIGHT GROIN. PRESSURE HELD X 10 MIN. NO BLEEDING NOTED.
[2020-06-01 11:08] VITALS: BP 104/60
--- NOTE | 2020-06-01 11:36 | NUR ---
DC PAPERWORK GONE OVER AND SIGNED WITH PT. ALL QUESTIONS ANSWERED. EL LAN WITH PT. PT WHEELED TO ER ENTERANCE. TO TAKE HER HOME.
== END 2020-06-01 11:38 | disposition home or self-care (01) | DRG 252 ==
LOC: D.ER 15:46 → D.M2 18:21 → D.SDCHOLD 05-30 14:13 → D.M2 06-01 11:38
PROVIDERS: Family Medicine; Internal Medicine Nephrology; ADMIT Surgery; ATTEND Surgery
PROC: 06H033Z Insertion of Infusion Device into Inferior Vena Cava, Percutaneous Approach (ICD-10-PCS; 2020-05-29)
PROC: B5191ZZ Fluoroscopy of Inferior Vena Cava using Low Osmolar Contrast (ICD-10-PCS; principal; 2020-05-29 09:00)
PROC: 05CD3ZZ Extirpation of Matter from Right Cephalic Vein, Percutaneous Approach (ICD-10-PCS; 2020-05-30)
PROC: 05WY3KZ Revision of Nonautologous Tissue Substitute in Upper Vein, Percutaneous Approach (ICD-10-PCS; 2020-05-30)
PROC: B31N1ZZ Fluoroscopy of Other Upper Arteries using Low Osmolar Contrast (ICD-10-PCS; 2020-05-30)
PROC: 5A1D70Z Performance of Urinary Filtration, Intermittent, Less than 6 Hours Per Day (ICD-10-PCS; 2020-05-31)
DX: T82.868A Thrombosis due to vascular prosthetic devices, implants and grafts, initial encounter (principal); N18.6 End stage renal disease; I12.0 Hypertensive chronic kidney disease with stage 5 chronic kidney disease or end stage renal disease; D68.59 Other primary thrombophilia; R00.0 Tachycardia, unspecified; R31.9 Hematuria, unspecified

== ENCOUNTER 2020-06-05 02:13 | Observation (INO) | payer MEDICARE ==
[~2020-06-05] VITALS: Ht 160 cm; Wt 59.1 kg
[~2020-06-05 02:13] MED LIST changes: +ELIQUIS2.5 MG PO; +PLAVIX75 MG PO
[2020-06-05 03:20] LABS: C-REACTIVE PROTEIN 0.7 mg/dL (0.0-0.9); PRO BNP 187 pg/mL (0-125); TROPONIN-I < 0.017 ng/mL (0.000-0.060)
[2020-06-05] MEDS ORDERED: LANOXIN125 MCG PO (04:24)
[2020-06-05 04:39] VITALS: BMI 23.0
[2020-06-05 05:36] VITALS: BP 113/64
[2020-06-05 05:40] LABS: BILIRUBIN NEGATIVE (NEGATIVE); EPITHELIAL CELLS 0-5 /hpf (0-5); GLUCOSE NEGATIVE (NEGATIVE); KETONE NEGATIVE (NEGATIVE); NITRITE NEGATIVE (NEGATIVE); SPECIFIC GRAVITY 1.015 (1.005-1.020); UROBILINOGEN NORMAL (NORMAL); WHITE CELLS - URINE 0-5 /hpf (NEGATIVE)
--- NOTE | 2020-06-05 05:43 | NUR ---
RECIEVED REPORT FROM CECILIA BENJAMIN IN ER. ARRIVED TO FLOOR ON STRETCHER AT 0400. ALERT AND ORIENTED X4. UP AD THUAN. SPOUSE AT BEDSIDE. DENIES ANY PAIN OR NEEDS AT THIS TIME. ASSESSMENT COMPLETED.
[2020-06-05 09:01] VITALS: BP 119/73
--- NOTE | 2020-06-05 09:26 | NUR ---
PT AWAKE AND ORIENTED, LYING IN BED. WITH FEET PROPPED UP AT BEDSIDE. NO COMPLAINTS/CONCERNS/QUESTIONS AT THIS TIME. CL INR EACH,S RX2.
--- NOTE | 2020-06-05 10:22 | NUR ---
I have reviewed this patient and I concur with the Shift Assessment completed by the Licensed Practical Nurse today this shift.
[2020-06-05 11:41] VITALS: Ht 160 cm; Wt 59.1 kg
[2020-06-05 13:28] VITALS: BP 122/80
--- NOTE | 2020-06-05 14:49 | NUR ---
ALERT/ORIENTED. BOYFRIEND AT BEDSIDE. NO COMPLAINTS OR CONCERNS CALL IGHT IN REACH SRX2
[2020-06-05 16:04] LABS: BASOPHILS 0.5 % (0-2); EOSINOPHILS 1.2 % (0-7); HEMATOCRIT 25.6 % (36.0-48.0); HEMOGLOBIN 8.3 g/dL (12-16); IMMATURE GRANULOCYTES 0.5 % (0-5); LYMPHOCYTES 20.8 % (15-50); MCH 29.5 pg (26.0-34.0); MCHC 32.4 g/dL (31.0-37.0); MCV 91.1 fL (80.0-100.0); MEAN PLATELET VOLUME 9.6 fL (7.4-10.4); PLATELET COUNT 256 10x3/uL (130-400); RBC 2.81 10x6/uL (4.00-5.40); RDW 13.4 % (11.5-14.5); WBC 8.3 10x3/uL (4.8-10.8)
[2020-06-05 16:20] VITALS: BP 117/77
[2020-06-05 18:33] VITALS: BP 124/88
--- NOTE | 2020-06-05 18:40 | MORECARE ---
CASE MANAGEMENT DISCHARGE SUMMARY PATIENT: CHER RICH UNIT: [id number] ADM DATE: 06/05/20 AGE: 30 : 90 SEX: F ROOM/BED: D.2140 AUTHOR: ALMA DELIA LEIGH PHYSICIAN: REFERRING PHYSICIAN: COLIN ALANIS MD DATE OF SERVICE: 06/05/20 Discharge Plan Patient Name: CHER RICH [facility] [facility] 1990 Planned Disposition: Anticipated Discharge Date: Discharge Date: Expected LOS: Initial Reviewer: [id number] Initial Review Date: 06/05/2020 Generated: 06/05/20 7:39 pm Comments DCP- Discharge Planning Updated by [id number]: Eryn Lerma on 06/05/20 5:[address] CM received order to evaluate for home 02 and nebulizer. Patient will need walk test prior to discharge but at this time she is on room air and 02 sat 96%. CM will continue to follow and assist as needed with discharge planning / needs. Coverage Notice Reviewer: [id number] - Eryn Lerma Notice Issued Date-Time: 06/05/2020 16:55 Notice Type: Medicare Outpatient Observation Notice Notice Delivered To: Patient Relationship to Patient: Self Hotel Clerk Name: Delivery Method: HAND - Hand Delivered Lili Days: Prior Verbal Notification: Recipient Understood Notice: Yes Recipient Signature: Yes Med Rec Note Co-signed by Attending: Coverage Notice Comment: Patient Name: CHER RICH Page [phone] at 1840 All edits/amendments must be made on the electronic document DICTATION DATE: 06/05/201838 BUOY TENDER: IGNACIO 06/05/201838 RPT#: [id number] DC DATE: STATUS: ADM IN [facility] [address] [place] [address] END OF REPORT
--- NOTE | 2020-06-05 19:37 | NUR ---
PT IS AWAKE AND ALERT DENIES ANY NEEDS AT THIS TIME BED LOW AND LOCKED VISITOR IS WITH PT
[2020-06-06 00:30] VITALS: BP 107/68
[2020-06-06 05:00] VITALS: BP 107/67
--- NOTE | 2020-06-06 06:10 | NUR ---
I have reviewed this patient and I concur with the Shift Assessment completed by the Licensed Practical Nurse today this shift.
[2020-06-06 06:16] LABS: BASOPHILS 0.6 % (0-2); EOSINOPHILS 4.6 % (0-7); HEMATOCRIT 24.3 % (36.0-48.0); HEMOGLOBIN 7.7 g/dL (12-16); IMMATURE GRANULOCYTES 0.6 % (0-5); LYMPHOCYTES 32.5 % (15-50); MCH 29.3 pg (26.0-34.0); MCHC 31.7 g/dL (31.0-37.0); MCV 92.4 fL (80.0-100.0); MEAN PLATELET VOLUME 9.7 fL (7.4-10.4); MONOCYTES 5.4 % (2-11); NEUTROPHILS 56.3 % (40-80); PLATELET COUNT 250 10x3/uL (130-400); RBC 2.63 10x6/uL (4.00-5.40); RDW 13.8 % (11.5-14.5); WBC 8.3 10x3/uL (4.8-10.8)
[2020-06-06 06:30] LABS: ANION GAP 11.8 mmol/L (8-16); CALCIUM 8.2 mg/dL (8.5-10.1); CARBON DIOXIDE 26.7 mmol/L (21.0-32.0); CREATININE - SERUM 5.2 mg/dL (0.6-1.3); POTASSIUM - SERUM 4.5 mmol/L (3.5-5.1)
[2020-06-06 08:30] VITALS: BP 116/77
[2020-06-06] MEDS ORDERED: IPRAT-ALBUT 0.5-3 ML UPD (08:46)
--- NOTE | 2020-06-06 09:11 | MORECARE ---
CASE MANAGEMENT DISCHARGE SUMMARY PATIENT: CHER RICH UNIT: [id number] ADM DATE: 06/05/20 AGE: 30 : 90 SEX: F ROOM/BED: D.2140 AUTHOR: ALMA DELIA LEIGH PHYSICIAN: REFERRING PHYSICIAN: COLIN ALANIS MD DATE OF SERVICE: 06/06/20 Discharge Plan Patient Name: CHER RICH [facility] [facility] 1990 Planned Disposition: Anticipated Discharge Date: Discharge Date: Expected LOS: Initial Reviewer: [email or web address] Initial Review Date: 06/05/2020 Generated: 06/06/20 10:10 am Comments DCP- Discharge Planning Updated by [id number]: Eryn Lerma on 06/05/20 5:[address] CM received order to evaluate for home 02 and nebulizer. Patient will need walk test prior to discharge but at this time she is on room air and 02 sat 96%. CM will continue to follow and assist as needed with discharge planning / needs. External Providers External Provider: Aryan Next Contact Date: Service Request Date: Service Type: Resolution: Reviewer: Comments: Coverage Notice Reviewer: [id number] - Eryn Lerma Notice Issued Date-Time: 06/05/2020 16:55 Notice Type: Medicare Outpatient Observation Notice Notice Delivered To: Patient Relationship to Patient: Self Process Coach Name: Delivery Method: HAND - Hand Delivered Lili Days: Prior Verbal Notification: Recipient Understood Notice: Yes Recipient Signature: Yes Med Rec Note Co-signed by Attending: Coverage Notice Comment: Last DP export: 06/05/20 5:40 pm Patient Name: CHER RICH Page [phone] at 0911 All edits/amendments must be made on the electronic document DICTATION DATE: 06/06/20909 ASSISTANT PLANT MANAGER: IGNACIO 06/06/20909 RPT#: [id number] DC DATE: STATUS: ADM IN [facility] [address] [place] [address] END OF REPORT
--- NOTE | 2020-06-06 09:25 | MORECARE ---
CASE MANAGEMENT DISCHARGE SUMMARY PATIENT: CHER RICH UNIT: [id number] ADM DATE: 06/05/20 AGE: 30 : 90 SEX: F ROOM/BED: D.2140 AUTHOR: LU,DOC PHYSICIAN: REFERRING PHYSICIAN: COLIN ALANIS MD DATE OF SERVICE: 06/06/20 Discharge Plan Patient Name: CHER RICH Facility: [facility]:[place] : 1990 Planned Disposition: Anticipated Discharge Date: Discharge Date: Expected LOS: Initial Reviewer: [email or web address] Initial Review Date: 06/05/2020 Generated: 06/06/20 10:25 am Comments DCP- Discharge Planning Updated by [id number]: Mela Chung on 06/06/20 8:[address] Patient Name: CHER RICH Encounter No: [id number] : 1990 Primary Insurance: MEDICARE A & B Anticipated DC Date: Planned Disposition: External Planned Provider: : DCP follow-up note:CM met with patient to complete initial dc planning assessment. CM educated patient on the CM role and verbal consent given by patient to complete assessment. CM verified patient's address, phone number, and emergency contact phone numbers. Patient lives at home with family. Her Jeffrey is currently at bedside. At discharge patient plans to return home and feels this is a safe discharge. CM discussed availability of home health, rehab services, and medical equipment. Patient will require nebulizers QID. [facility] signed for [facility] and [facility] Patient. CM spoke with Bahman at [facility] at [phone] , and faxed referral. The patient is currently on room air and does not qualify for home oxygen. Patient denies other known discharge needs at this time. Transportation provider at discharge will be Jeffrey. Patient and family in agreement with discharge plan. Mela Chung DCP- Discharge Planning Updated by [email or web address]: Eryn Lerma on 06/05/20 5:[address] CM received order to evaluate for home 02 and nebulizer. Patient will need walk test prior to discharge but at this time she is on room air and 02 sat 96%. CM will continue to follow and assist as needed with discharge planning / needs. Coverage Notice Reviewer: [id number] - Eryn Lerma Notice Issued Date-Time: 06/05/2020 16:55 Notice Type: Medicare Outpatient Observation Notice Notice Delivered To: Patient Relationship to Patient: Self Health Information Manager Name: Delivery Method: HAND - Hand Delivered Lili Days: Prior Verbal Notification: Recipient Understood Notice: Yes Recipient Signature: Yes Med Rec Note Co-signed by Attending: Coverage Notice Comment: Last DP export: 06/06/20 8:10 am Patient Name: CHER RICH Page [phone] at 0925 All edits/amendments must be made on the electronic document DICTATION DATE: 06/06/20924 VETERINARY BACTERIOLOGIST: IGNACIO 06/06/20924 RPT#: [id number] DC DATE: STATUS: ADM IN [facility] [address] [place] [address] END OF REPORT
--- NOTE | 2020-06-06 11:33 | NUR ---
PRBC PICKED UP FROM LAB AND TAKEN TO DIALYSIS ALONG WITH TUBING AND A BAG OF NS.
--- NOTE | 2020-06-06 12:17 | NUR ---
MEDICATION FOR ONE WEEK CALLED TO [facility] IN [place]. SPOKE TO AYAAN - PHARMACIST.
--- NOTE | 2020-06-06 13:56 | NUR ---
DISCHARGE INSTRUCTIOSNS GIVEN AND EXPLAINED TO PT. PT HAS NO FURTHER QUESTIONS. CHART COPY SIGNED. TELEMTRY DC'D. LEFT WRIST IV DC'D WITH CATH INTACT.
--- NOTE | 2020-06-06 14:11 | NUR ---
PT TAKEN OUT VIA WC AND LEFT WITH FAMILY MEMBER IN PERSONAL VEHICLE WITH ALL BELONGINGS.
--- NOTE | 2020-06-06 21:00 | MORECARE ---
CASE MANAGEMENT DISCHARGE SUMMARY PATIENT: CHER RICH UNIT: [id number] ADM DATE: 06/05/20 AGE: 30 : 90 SEX: F ROOM/BED: D.2140 AUTHOR: LU,DOC PHYSICIAN: REFERRING PHYSICIAN: COLIN ALANIS MD DATE OF SERVICE: 06/06/20 Discharge Plan Patient Name: CHER RICH Facility: [facility]:[place] : 1990 Planned Disposition: Anticipated Discharge Date: Discharge Date: 06/06/2020 Expected LOS: Initial Reviewer: [id number] Initial Review Date: 06/05/2020 Generated: 06/06/20 9:59 pm Comments DCP- Discharge Planning Updated by [email or web address]: Mela Chung on 06/06/20 8:[address] Patient Name: CHER RICH Encounter No: [id number] : 1990 Primary Insurance: MEDICARE A & B Anticipated DC Date: Planned Disposition: External Planned Provider: : DCP follow-up note:CM met with patient to complete initial dc planning assessment. CM educated patient on the CM role and verbal consent given by patient to complete assessment. CM verified patient's address, phone number, and emergency contact phone numbers. Patient lives at home with family. Her Jeffrey is currently at bedside. At discharge patient plans to return home and feels this is a safe discharge. CM discussed availability of home health, rehab services, and medical equipment. Patient will require nebulizers QID. [facility] signed for [facility] and [facility] Patient. CM spoke with Bahman at [facility] at [phone] , and faxed referral. The patient is currently on room air and does not qualify for home oxygen. Patient denies other known discharge needs at this time. Transportation provider at discharge will be Jeffrey. Patient and family in agreement with discharge plan. Mela Chung DCP- Discharge Planning Updated by [email or web address]: Eryn Lerma on 06/05/20 5:[address] CM received order to evaluate for home 02 and nebulizer. Patient will need walk test prior to discharge but at this time she is on room air and 02 sat 96%. CM will continue to follow and assist as needed with discharge planning / needs. Coverage Notice Reviewer: [id number] - Eryn Maria Guadalupe Notice Issued Date-Time: 06/05/2020 16:55 Notice Type: Medicare Outpatient Observation Notice Notice Delivered To: Patient Relationship to Patient: Self Customs Brokerage Agent Name: Delivery Method: HAND - Hand Delivered Lili Days: Prior Verbal Notification: Recipient Understood Notice: Yes Recipient Signature: Yes Med Rec Note Co-signed by Attending: Coverage Notice Comment: Last DP export: 06/06/20 8:25 am Patient Name: CHER RICH Page [phone] at 2100 All edits/amendments must be made on the electronic document DICTATION DATE: 06/06/202058 FULL STACK SOFTWARE ENGINEER: IGNACIO 06/06/202058 [facility]#: [id number] [place] DATE:06/06/20 STATUS: DIS IN [facility] [address] [place] [address] END OF REPORT
== END 2020-06-06 14:13 | disposition home or self-care (01) ==
LOC: D.ER 02:13 → OBSVTIME 02:26 → D.M2 02:26
PROVIDERS: Family Medicine; Internal Medicine Pulmonary Disease; ADMIT Internal Medicine Nephrology; ATTEND Internal Medicine Nephrology
DX: R06.00 Dyspnea, unspecified (principal); I12.0 Hypertensive chronic kidney disease with stage 5 chronic kidney disease or end stage renal disease; N18.6 End stage renal disease; Z99.2 Dependence on renal dialysis; K21.9 Gastro-esophageal reflux disease without esophagitis; J45.909 Unspecified asthma, uncomplicated; I48.91 Unspecified atrial fibrillation

== ENCOUNTER → 2020-07-26 08:39 | Outpatient (CLI) | payer MEDICARE ==
[2020-06-05 11:41] VITALS: BMI 23.0
[~2020-07-26 08:39] MED LIST changes: +IPRAT-ALBUT 0.5-3 ML UPD
== END | disposition home or self-care (01) ==
LOC: D.LAB 08:39
PROVIDERS: ATTEND Internal Medicine Pulmonary Disease
DX: Z11.59 Encounter for screening for other viral diseases (principal)

== ENCOUNTER → 2020-07-28 10:38 | Outpatient (CLI) | payer MEDICARE ==
[2020-06-05 11:41] VITALS: BMI 23.0
== END | disposition home or self-care (01) ==
LOC: D.RT 07-06 09:30
PROVIDERS: ATTEND Internal Medicine Pulmonary Disease
DX: Z11.59 Encounter for screening for other viral diseases (principal); N18.6 End stage renal disease; Z99.2 Dependence on renal dialysis

== ENCOUNTER → 2020-09-15 07:39 | Outpatient (CLI) | payer MEDICARE ==
[2020-06-05 11:41] VITALS: BMI 23.0
== END | disposition home or self-care (01) ==
LOC: D.NM 07:39
PROVIDERS: ATTEND Internal Medicine Gastroenterology
DX: R13.19 Other dysphagia (principal); R11.0 Nausea; R10.84 Generalized abdominal pain